=== PATIENT | female | born 1960 | race Caucasian/White ===

== ENCOUNTER → 2018-04-09 | Outpatient (CLI) | payer BC ==
--- NOTE | 2018-04-12 12:16 | RADIOLOGY IMAGING REPORT ---
FACILITY: [facility] PATIENT NAME: SELINA MAYS : [id number] MR: [id number] V: [id number] EXAM DATE: ORDERING PHYSICIAN: NEVILLE EDMONDS TECHNOLOGIST: [place] Rodriguez PROCEDURE:BILATERAL DIGITAL SCREENING MAMMOGRAM WITH CAD ASSISTED INTERPRETATION & 3D TOMOSYNTHESIS COMPARISON:Prior mammograms dated 03/30/17, 02/12/16 INDICATIONS:SCREENING FINDINGS: A small amount of fibroglandular tissue is seen throughout the breasts. The parenchymal pattern has remained stable allowing for difference in mammographic technique & patient positioning. There is no evidence of malignant appearing mass, malignant appearing calcification or other secondary sign of malignancy in either breast. DIAGNOSTIC CATEGORY 1--NEGATIVE. RECOMMENDATIONS: ROUTINE MAMMOGRAM AND CLINICAL EVALUATION. IMPRESSION: BIRADS 1: Negative. No significant abnormality is seen. Dictated by: Flora Miranda M.D. on 04/12/2018 at 10:43 Transcribed by: KOURTNEY on 04/12/2018 at 10:49 Approved by: Flora Miranda M.D. on 04/12/2018 at 12:15 [facility]
== END ==
LOC: MAMO 10:55
PROVIDERS: ATTEND Nurse Practitioner Family
DX: Z12.31 Encounter for screening mammogram for malignant neoplasm of breast (principal)
CPT/HCPCS: 77063; 77067